=== PATIENT | female | born 1970 | race Hispanic/Latino ===

== ENCOUNTER 2017-01-04 19:25 | Emergency (ER) | payer BC ==
[2017-01-04 19:25] VITALS: BMI 29.9
[2017-01-04 19:32] VITALS: TEMP 98.8
--- NOTE | 2017-01-04 20:16 | ED PDOC ---
Arrival/HPI - General Chief Complaint: Abnormal Skin Integrity Time Seen by Provider: 01/04/17 19:51 - History of Present Illness Narrative History of Present Illness (Text): 01/04/17 20:12 A 46 year old female, whose past medical history includes diabetes mellitus, presents to the emergency department for what she feels may be "bug bites" on her legs, which she noticed 3 days ago. The patient states she was in [place] at the beach 3 days ago when she realized she had bite bright all over her legs. She states the pain is itchy and burning and has worsened over the past few days. She denies any joint pain. Denies fevers. States rash only noted on legs. Daughter states patient "likes to bury her feet and legs in the sand when she is at the beach". She reports that after returning from the beach she notices more bites than while at the beach. Time/Duration: < week (x 3days) Symptom Onset: Sudden Symptom Course: Unchanged Quality: Burning Activities at Onset: Significant (At the beach in [place]) Context: Other (Beach) Past Medical History - Provider Review Nursing Documentation Reviewed: Yes - Infectious Disease Hx of Infectious Diseases: None - Tetanus Immunization Tetanus Immunization: Unknown - Past Medical History Past Medical History: No Previous - Cardiac Hx Cardiac Disorders: No - Pulmonary Hx Respiratory Disorders: No - Neurological Hx Neurological Disorder: No - HEENT Hx HEENT Disorder: No - Renal Hx Renal Disorder: No - Endocrine/Metabolic Hx Endocrine Disorders: Yes Hx Diabetes Mellitus Type 2: Yes - Hematological/Oncological Hx Blood Transfusions: No Hx Blood Transfusion Reaction: No - Integumentary Hx Dermatological Disorder: No - Musculoskeletal/Rheumatological Hx Falls: No - Gastrointestinal Hx Gastrointestinal Disorders: Yes (IBS) Other/Comment: liver disease - Genitourinary/Gynecological Hx Genitourinary Disorders: No - Psychiatric Hx Psychophysiologic Disorder: No Hx Substance Use: No - Past Surgical History Past Surgical History: No Previous - Surgical History Hx Cholecystectomy: Yes Hx Hysterectomy: Yes - Anesthesia Hx Anesthesia Reactions: No Hx Malignant Hyperthermia: No - Suicidal Assessment Feels Threatened In Home Enviroment: No Family/Social History - Physician Review Nursing Documentation Reviewed: Yes Family/Social History: Unknown Family HX Smoking Status: Heavy Smoker > 10 Cigarettes Daily Hx Alcohol Use: No Hx Substance Use: No Hx Substance Use Treatment: No Allergies/Home Meds Allergies/Adverse Reactions: Allergies No Known Allergies Allergy (Verified 01/04/17 19:30) Home Medications: Home Meds Medication Instructions Recorded Confirmed Insulin Detemir [Levemir] 25 unit SC DAILY 01/04/17 01/04/17 Multivitamin [Multivitamins] 1 tab PO DAILY 01/04/17 01/04/17 Review of Systems - Review of Systems Constitutional: absent: Fevers Eyes: absent: Vision Changes ENT: absent: Hearing Changes Respiratory: absent: SOB Cardiovascular: absent: Chest Pain Gastrointestinal: absent: Abdominal Pain Genitourinary Female: absent: Dysuria Musculoskeletal: absent: Arthralgias, Back Pain, Neck Pain Skin: Rash, Pruritis, Other (bite bright). absent: Abscess, Ulcer, Cellulitis Neurological: absent: Headache, Dizziness, Focal Weakness Endocrine: absent: Diaphoresis Physical Exam - Physical Exam Narrative Physical Exam (Text): 01/04/17 20:17 Head: Atraumatic. Normocephalic. Eyes: PERRL. EOMI. Conjunctivae are not pale. ENT: Mucous membranes are moist and intact. No angioedema. Neck: Supple. Full ROM. Cardiovascular: Regular rate. Regular rhythm. Distal pulses are 2+ and symmetric. Pulmonary/Chest: No evidence of respiratory distress. Clear to auscultation bilaterally. No wheezing, rales or rhonchi. Abdominal: Soft and non-distended. There is no tenderness. No rebound, guarding, or rigidity. No organomegaly. Good bowel sounds. Back: No CVA tenderness. No deformity. Extremities: No edema. No cyanosis. No clubbing. Full range of motion in all extremities. No calf tenderness. Distal pulses intact. Skin: No vesicular rash. No petechiae. No purpura. Multiple small, pinpoint red lesions consistent with bites in lower extremity, NOT on the soles of the feet, not between toes, nonvesicular, less than 1-2 mm in diameter, no pus or drainage, no streaking, no ulcers, does not extend beyond legs, does not extend to unexposed areas of legs as described by patient's bathing suit (one piece). No rash or lesions on arms or back or scalp or neck. Neurological: Alert. Motor and sensory exam intact. Sensation intact in lower extremities. Psychiatric: Good eye contact. Normal interaction, affect, and behavior. Vital Signs Reviewed: Yes Vital Signs Temp Pulse Resp BP Pulse Ox 01/04/17 20:44 89 17 150/82 98 01/04/17 19:31 98.8 F 93 H 18 152/85 H 97 Temperature: Afebrile Blood Pressure: Hypertensive Pulse: Regular Respiratory Rate: Tachypneic Appearance: Positive for: Well-Appearing, Non-Toxic, Comfortable Pain Distress: Mild Mental Status: Positive for: Alert and Oriented X 3 Medical Decision Making ED Course and Treatment: 01/04/17 20:17 Impression: A 46 year old woman with bug bite bright bilaterally to her lower extremities. Differential Diagnosis included but are not limited to: sand fleas, allergic reaction, bug bites Progress Notes: Patient's rash only on exposed areas of her leg. Currently no systemtic symptoms , no streaking, no fever, no abscess. No ulcerations. Ddx includes sand flea bites, which I discussed in length with patient and family. No "burrowed" bugs noted in skin, although limitations of direct visualization at this time reviewed. Denies pain. No linear streaking noted. No joint pain. Will d/c with hydrocortisone cream, stressed risks of higher dose in diabetics and need for close monitoring of blood sugar as well as re-evaluation with medical examiner and PMD if symptoms persist or worsen or change in character in any way. No black discoloration or ulcerations noted at this time. No respiratory distress or wheezing. No new ingestions or detergents. who shared bed with her with no rash. - Scribe Statement The provider has reviewed the documentation as recorded by the Rick Genao Provider Scribe Attestation: All medical record entries made by the Rick were at my direction and personally dictated by me. I have reviewed the chart and agree that the record accurately reflects my personal performance of the history, physical exam, medical decision making, and the department course for this patient. I have also personally directed, reviewed, and agree with the discharge instructions and disposition. Disposition/Present on Arrival - Present on Arrival Any Indicators Present on Arrival: No History of DVT/PE: No History of Uncontrolled Diabetes: No Urinary Catheter: No History of Decub. Ulcer: No History Surgical Site Infection Following: None - Disposition Have Diagnosis and Disposition been Completed?: Yes Diagnosis: Bites Disposition: HOME/ ROUTINE Disposition Time: 20:20 Patient Plan: Discharge Condition: GOOD Discharge Instructions (ExitCare): Insect Bite or Sting (ED) Additional Instructions: Your rash may be due to "sand fleas". Keep a close eye on the appearance of rash if you develop any increase in redness or swelling, any discoloration or drainage, any streaking, any fevers or chills, get rechecked immediately. Dont scratch the bites. Check the bite for breeding sand fleas. They can live under your skin and suck your blood for weeks. Apply calamine lotion or hydrocortisone cream on the bites to control the itching, and take some painkillers to reduce the pain and swelling. You should return to ER if this doesnt help or if the symptoms get worse. Baking soda mixed with water may give you some relief. Make yourself an oatmeal bath and soak in it to reduce the itching. The water must not be too hot. Aloe Vera may have a soothing effect on sand flea bites. Essential oils like lavender, eucalyptus, tea tree and cedar wood may also help you get rid of the discomfort. If rash spreads or worsens in ANY way, get rechecked immediately. If rash spreads or worsens discontinue hydrocortisone and get re-evaluated. Monitor your blood sugar closely while taking hydrocortisone. Prescriptions: Hydrocortisone 2.5% 2.5 unit TP DAILY #1 oin Referrals: Bob Victor MD [Primary Care Provider] - Follow up with primary Richard Lehman MD [Staff Provider] - Follow up with primary Forms: [employer] (Korean)
[2017-01-04 20:45] VITALS: BP 150/82; PULSE 89; RESP 17; O2SAT 98
== END 2017-01-04 20:45 | disposition home or self-care (01) ==
LOC: ED 19:25
DX: S80.862A Insect bite (nonvenomous), left lower leg, initial encounter (principal); S80.861A Insect bite (nonvenomous), right lower leg, initial encounter; W57.XXXA Bitten or stung by nonvenomous insect and other nonvenomous arthropods, initial encounter; Y92.832 Beach as the place of occurrence of the external cause